=== PATIENT | male | born 1950 | race Caucasian/White ===

== ENCOUNTER 2016-12-14 07:57 | Day surgery (SDC) | payer OTHER ==
[~2016-12-14 07:57] MED LIST: FENTANYL 250 MCG/5 ML AMP IV PRN; LACTATED RINGERS 1,000 ML IV SCH; MIDAZOLAM HCL 5 MG/5 ML VIAL IV PRN
[2016-12-14] MEDS ORDERED: IV START KIT ONE (08:13)
[2016-12-14] MEDS ORDERED: LACTATED RINGERS 1,000 ML ONE (08:13)
[2016-12-14] MEDS ORDERED: MIDAZOLAM HCL 5 MG/5 ML VIAL ONE (09:19)
[2016-12-14] MEDS ORDERED: FENTANYL 5 ML ONE (09:19)
--- NOTE | 2016-12-17 12:00 | SURGPATH ---
[facility] [address] [place] [id number] Patient Name: CAMILA LECHUGA MR#: [id number] : 1950 Gender: M Specimen #: [id number] Collected: 12/14/2016 Received: 12/16/2016 Reported: 12/17/2016 Submitting Phys: HOLLY BROOKS Copy To Phys: [facility] Naseem DO Clinical History / Pre-Operative Diagnosis: HISTORY OF MULTIPLE TUBULAR ADENOMATOUS COLON POLYPS Specimen Source / Surgical Procedure Performed: MID TRANSVERSE COLON POLYP X5 Interpretation: MID TRANSVERSE COLON, POLYPS, BIOPSY: - TUBULAR ADENOMAS Electronically Signed Out Jose Dewitt M.D. Gross Description: The specimen is received in a formalin filled container labeled with the patient's name and "mid transverse colon polyps". Seven polypoid red-hernandez biopsy fragments are 0.3-0.7 cm. The two larger polyps are bisected. Totally embedded in one cassette. Chaparro Newberry, P.AAmeena Microscopic Description: Levels reveal colonic mucosa surfaced by tubular glands with focal adenomatous features. High grade dysplasia and malignancy are not present. 1: 91477 D12.3
== END 2016-12-14 10:44 | disposition home or self-care (01) ==
LOC: SDC 07:57
PROVIDERS: ATTEND Internal Medicine Gastroenterology
PROC: 0DBL8ZX Excision of Transverse Colon, Via Natural or Artificial Opening Endoscopic, Diagnostic (ICD-10-PCS; principal; 2016-12-14)
DX: Z12.11 Encounter for screening for malignant neoplasm of colon (principal); D12.3 Benign neoplasm of transverse colon; Z86.010 Personal history of colon polyps; F17.210 Nicotine dependence, cigarettes, uncomplicated; I10 Essential (primary) hypertension; J44.9 Chronic obstructive pulmonary disease, unspecified; E79.0 Hyperuricemia without signs of inflammatory arthritis and tophaceous disease; I73.9 Peripheral vascular disease, unspecified; Z79.01 Long term (current) use of anticoagulants; Z88.0 Allergy status to penicillin
CPT/HCPCS: 45385; J3010; J2250; J7120